=== PATIENT | male | born 1965 | race Caucasian/White ===

== ENCOUNTER 2017-04-15 21:16 | Observation (INO) | payer BC ==
[2017-04-15] VITALS (10 sets, daily range): BP systolic 147–239; BP diastolic 84–113; PULSE 94–120; RESP 16–20; TEMP 99.2; O2SAT 93–98
[~2017-04-15] VITALS: Ht 185.4 cm; Wt 127.0 kg
[~2017-04-15 21:16] MED LIST: GLUCTAB PO; LANTUSP SQ; NAPR500 PO; NOVOLOGP2 SC
[2017-04-15] MEDS ORDERED: IODIXANOL 320 MG/ML 10 ML VIAL (for Rad CT) IVCONTRAST ONE (21:39)
[2017-04-15 21:42] LABS: AUTOMATED NEUTROPHIL # 2.8 TH/MM3 (1.8-7.7); BASOPHIL # 0.1 TH/MM3 (0-0.2); BASOPHIL % 1.1 % (0.0-2.0); EOSINOPHIL # 0.1 TH/MM3 (0-0.4); EOSINOPHIL % 2.4 % (0.0-4.0); HEMATOCRIT 39.6 % (39.0-51.0); HEMO FLAGS DIFF FINAL; LYMPH % 37.3 % (9.0-44.0); LYMPHOCYTE # 2.1 TH/MM3 (1.0-4.8); MEAN CELL VOLUME 88.1 FL (80.0-100.0); MEAN CORPUSCULAR HEMOGLOBIN 30.7 PG (27.0-34.0); MEAN CORPUSCULAR HGB CONC 34.8 % (32.0-36.0); MONO % 9.3 % (0.0-8.0); NEUT % 49.9 % (16.0-70.0); PLATELET COUNT 200 TH/MM3 (150-450); RED BLOOD COUNT 4.49 MIL/MM3 (4.50-5.90); RED CELL DISTRIBUTION WIDTH 12.5 % (11.6-17.2); WHITE BLOOD COUNT 5.6 TH/MM3 (4.0-11.0)
[2017-04-15] MEDS ORDERED: niCARdipine INJ 25 MG in SODIUM CHLOR 0.9% 250 ML INJ 240 ML IV PRN (21:45)
[2017-04-15 21:50] LABS: CHLORIDE 103 MEQ/L (98-107); POTASSIUM 3.8 MEQ/L (3.5-5.1); SODIUM (NA) 136 MEQ/L (136-145)
[2017-04-15 21:53] LABS: ANION GAP 10 MEQ/L (5-15); BICARBONATE 22.8 MEQ/L (21.0-32.0)
[2017-04-15 21:54] LABS: BLOOD UREA NITROGEN 17 MG/DL (7-18)
[2017-04-15 21:57] LABS: GLOMERULAR FILTRATION RATE 94 ML/MIN (>89)
[2017-04-15] MEDS: SODIUM CHLOR 0.9% 1000 ML INJ 1,000 ML IV SCH (21:57)
--- NOTE | 2017-04-15 21:58 | RADRPT ---
EXAM DATE/TIME: 04/15/2017 21:37 [facility] COMPARISON: No previous studies available for comparison. INDICATIONS : Right sided facial droop RADIATION DOSE: 61.90 CTDIvol (mGy) This report was called by Dr. Chen to Dr. Layne at 9: 55 PM on 04/15/17. MEDICAL HISTORY : Diabetes mellitus type 2. SURGICAL HISTORY : None. ENCOUNTER: Initial ACUITY: 1 day PAIN SCALE: 0/10 LOCATION: Right cranial TECHNIQUE: Multiple contiguous axial images were obtained of the head. Using automated exposure control and adj ustment of the mA and/or kV according to patient size, radiation dose was kept as low as reasonably a chievable to obtain optimal diagnostic quality images. DICOM format image data is available electro nically for review and comparison. FINDINGS: CEREBRUM: The ventricles are normal for age. No evidence of midline shift, mass lesion, hemorrhage or acute in farction. No extra-axial fluid collections are seen. POSTERIOR FOSSA: The cerebellum and brainstem are intact. The 4th ventricle is midline. The cerebellopontine angle i s unremarkable. EXTRACRANIAL: The visualized portion of the orbits is intact. SKULL: The calvaria is intact. No evidence of skull fracture. CONCLUSION: No acute disease. Robert Chen MD on April 15, 2017 at 21:54 Board Certified Radiologist. This report was verified electronically.
[2017-04-15 22:00] LABS: CREATINE KINASE 153 U/L (39-308)
[2017-04-15 22:01] LABS: PROTHROMBIN TIME - PATIENT 9.9 SEC (9.8-11.6)
--- NOTE | 2017-04-15 22:09 | PD ---
HPI Chief Complaint: Neuro Symptoms/ Deficits Time Seen by Provider: 21:34 Travel History International Travel<30 days: No Contact w/Intl Traveler<30days: No Traveled to known affect area: No History of Present Illness HPI 51-year-old male presents to the emergency department by private transportation the care of his for evaluation of new onset right facial droop. Patient states this is markedly improved since noticing a first-time at 8:55 PM this evening. According to patient the last time he is ultimately urgency his face was around 3 PM until the episode at 8:55 PM. Patient states he ate dinner with his around 6 PM and at that time his did not notice any facial changes and did not make any comment and then for the rest of the evening he was watching TV with her however they were sitting [id number] so she was not looking at him until he brought the right facial droop to her attention at 8:55 PM the at the bedside states that the facial change on the right side of the face has markedly improved and had started to improve while he was on his way here to the hospital. She did not notice any other findings. 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 Patient has had no change in his speech. No headache. No confusion. No visual disturbance. No upper or lower extremity numbness tingling or weakness. Patient has noted for the past 3 hours feeling as though his blood sugar is low and feeling weak like he does when he has hypoglycemic episodes but does not identify any focal weakness and no ataxia. Patient's blood sugar at home was 170. Patient states he noticed his diabetic hypoglycemic symptoms around 6 PM. Patient's blood sugar here is 238. Patient denies prior history of TIA or CVA. Patient takes no blood thinning agents including aspirin because he's had bleeding into his left IV for associated with aspirin use. 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 [facility] Past Medical History Narrative Medical Hypertension tachycardia diabetes Left eye blindness Social History Tobacco Use: No Allergies-Medications (Allergen,Severity, Reaction): Coded Allergies: No Known Allergies (Unverified , 04/15/17) Reported Meds & Prescriptions Reported Meds & Active Scripts Active Reported Trulicity Inj (Dulaglutide Inj) 1.5 Mg/0.5 Ml Pen 1.5 Mg SQ Q7D Levemir Inj (Insulin Detemir) 1,000 unit/ 10 ML Vial 45 Units SQ BID Do not mix with any other Insulin. Novolin R Inj (Insulin Human Regular) 1,000 Unit/10 Ml Vial 20 Units SQ Novolin R Inj (Insulin Human Regular) 1,000 Unit/10 Ml Vial 0 SQ DIRECTED Sliding Scale As Directed. Metformin (Metformin HCl) 1,000 Mg Tab 1,000 Mg PO BIDPC Atenolol 50 Mg Tab 50 Mg PO BID Losartan (Losartan Potassium) 50 Mg Tab 50 Mg PO DAILY Narrative Medication Blood pressure medication and diabetic medication Review of Systems Except as stated in HPI: all other systems reviewed are Neg General / Constitutional: No: Fever, Chills Eyes: Positive: Blindness (left eye x 30 years after injury from nail to the left eye), No: Diploplia, Blurred Vision, Visual changes HENT: No: Headaches, Lightheadedness, Neck Pain Cardiovascular: No: Chest Pain or Discomfort, Palpitations, Diaphoresis Respiratory: No: Shortness of Breath Gastrointestinal: No: Nausea, Vomiting Genitourinary: No: Flank Pain Musculoskeletal: No: Pain Skin: No Rash Neurologic: Positive: Focal Abnormalities (right facial droop --resolving prior to arrival), No: Weakness, Dizziness, Syncope, Coordination Problem, Ataxia, Headache, Change in Mentation, Slurred Speech, Paresthesia, Seizures, Sensory Disturbance Endocrine: No: Heat Intolerance, Cold Intolerance Hematologic/Lymphatic: No: Easy Bruising Physical Exam Narrative GENERAL: Well-developed well-nourished male appears mildly anxious in no respiratory distress; GCS 15, normal speech SKIN: Warm and dry. HEAD: Atraumatic. Normocephalic. EYES: Right pupil equal and round reactive to light; left pupil dilated and nonreactive with residual decreased rom secondary to chronic trauma. No scleral icterus. No injection or drainage. ENT: No nasal bleeding or discharge. Mucous membranes pink and moist. Airway is patent. NECK: Trachea midline. No JVD. CARDIOVASCULAR: Regular rate and rhythm. RESPIRATORY: No accessory muscle use. Clear to auscultation. Breath sounds equal bilaterally. GASTROINTESTINAL: Abdomen soft, non-tender, nondistended. Hepatic and splenic margins not palpable. MUSCULOSKELETAL: Extremities without clubbing, cyanosis, or edema. No obvious deformities. NEUROLOGICAL: Awake and alert. GCS 15. No obvious cranial nerve deficits; except for previous chronic left eye injury; no facial droop is noted at this time; normal nasolabial fold bilaterally. Motor grossly within normal limits. Five out of 5 muscle strength in the arms and legs. No limb ataxia, bilateral upper extremities or bilateral lower extremities. No pronator drift. Normal speech. PSYCHIATRIC: Appropriate mood and affect; insight and judgment normal. Data Data Last Documented VS Vital Signs Date Time Temp Pulse Resp B/P (MAP) Pulse Ox O2 Delivery O2 Flow Rate FiO2 04/15/17 22:31 112 16 169/91 (117) 98 Nasal Cannula 2.00 04/15/17 22:16 99.2 04/15/17 21:[address] Brain W/O Iv Contrast(Rout) (04/15/17 ) Cath For Specimen (04/15/17 21:36) Neuro Checks Q2HX12,Q4H (04/15/17 21:36) Nursing Bedside Swallow Assess .ONCE (04/15/17 21:36) Activity Bed Rest (04/15/17 21:36) Prothrombin Time / Inr (Pt) (04/15/17 21:36) Act Partial Throm Time (Ptt) (04/15/17 21:36) Complete Blood Count With Diff (04/15/17 21:36) Basic Metabolic Panel (Bmp) (04/15/17 21:36) Fibrinogen (04/15/17 21:36) Creatine Kinase (Cpk) (04/15/17 21:36) Troponin I (04/15/17 21:36) Ua Includes Microscopic (04/15/17 21:36) Drug Screen, Random Urine (04/15/17 21:36) Type And Screen (04/15/17 21:36) Cta Brain W Iv Contrast W 3d (04/15/17 21:36) Cta Neck W Iv Contrast W 3d (04/15/17 21:36) Electrocardiogram (04/15/17 ) Consult Neurology (04/15/17 21:36) Blood Glucose (04/15/17 21:36) Ecg Monitoring (04/15/17 21:36) Iv Access Insert/Monitor (04/15/17 21:36) NPO (04/15/17 21:36) Oximetry (04/15/17 21:36) Oxygen Administration (04/15/17 21:36) Resp Oxygen Juan M C Titrat 1-4 L (04/15/17 21:36) Sodium Chlor 0.9% 1000 Ml Inj (Ns 1000 M (04/15/17 21:45) Nicardipine Inj (Cardene Inj) (04/15/17 21:45) Place In Observation (04/15/17 ) Vital Signs (Adult) Q2HX12,Q4H (04/15/17 22:32) Nih Stroke Scale - Nihss .Daily (04/15/17 22:32) Neuro Checks Q2HX12,Q4H (04/15/17 22:32) Notify Dr: Other (04/15/17 22:32) Remove Urinary Catheter .ONCE (04/15/17 22:32) Case Management Consult (04/15/17 ) Activity Oob Ad Ankita (04/15/17 22:32) Nursing Bedside Swallow Assess .ONCE (04/15/17 22:32) Scd Bilateral/Knee High MARLENE.QSHIFT (04/15/17 22:32) Hemoglobin (Hgb) A1c (04/15/17 22:32) Lipid Profile (04/16/17 06:00) Echo 2d Comp With Doppler (04/15/17 ) ^ Hold Medication (04/15/17 22:32) Sodium Chloride 0.9% Flush (Ns Flush) (04/16/17 09:00) Sodium Chloride 0.9% Flush (Ns Flush) (04/15/17 22:45) Bedside Glucose MARLENE.CSUGAR (04/15/17 22:32) ^ Discontinue Insulin Orders (04/15/17 22:32) Insulin Aspart Supplemtl Scale (Novolog (04/16/17 08:00) Dextrose 50% In Darshan (Vial) Inj (D50w (Vi (04/15/17 22:45) Glucagon Inj (Glucagon Inj) (04/15/17 22:45) Potato Loader / Telemetry MARLENE.Q8H (04/15/17 22:32) Consult Stroke Navigator (04/15/17 ) Admit Order (Ed Use Only) (04/15/17 ) Potato Loader / Telemetry MARLENE.Q8H (04/15/17 22:33) Activity Bed Rest (04/15/17 22:33) Notify Dr: Other (04/15/17 22:33) Labs Laboratory Tests Test 04/15/17 21:36 04/15/17 22:20 White Blood Count 5.6 TH/MM3 Red Blood Count 4.49 MIL/MM3 Hemoglobin 13.8 GM/DL Hematocrit 39.6 % Mean Corpuscular Volume 88.1 FL Mean Corpuscular Hemoglobin 30.7 PG Mean Corpuscular Hemoglobin Concent 34.8 % Red Cell Distribution Width 12.5 % Platelet Count 200 TH/MM3 Mean Platelet Volume 7.3 FL Neutrophils (%) (Auto) 49.9 % Lymphocytes (%) (Auto) 37.3 % Monocytes (%) (Auto) 9.3 % Eosinophils (%) (Auto) 2.4 % Basophils (%) (Auto) 1.1 % Neutrophils # (Auto) 2.8 TH/MM3 Lymphocytes # (Auto) 2.1 TH/MM3 Monocytes # (Auto) 0.5 TH/MM3 Eosinophils # (Auto) 0.1 TH/MM3 Basophils # (Auto) 0.1 TH/MM3 CBC Comment DIFF FINAL Differential Comment Prothrombin Time 9.9 SEC Prothromb Time International Ratio 1.0 RATIO Activated Partial Thromboplast Time 20.0 SEC Fibrinogen 339 mg/dL Blood Urea Nitrogen 17 MG/DL Creatinine 0.86 MG/DL Random Glucose 223 MG/DL Calcium Level 8.8 MG/DL Sodium Level 136 MEQ/L Potassium Level 3.8 MEQ/L Chloride Level 103 MEQ/L Carbon Dioxide Level 22.8 MEQ/L Anion Gap 10 MEQ/L Estimat Glomerular Filtration Rate 94 ML/MIN Total Creatine Kinase 153 U/L Troponin I LESS THAN 0.02 NG/ML Urine Color YELLOW Urine Turbidity CLEAR Urine pH 6.0 Urine Specific [place] GREATER THAN 1.035 Urine Protein NEG mg/dL Urine Glucose (UA) 100 mg/dL Urine Ketones NEG mg/dL Urine Occult Blood NEG Urine Nitrite NEG Urine Bilirubin NEG Urine Leukocyte Esterase NEG Urine RBC 0-2 /hpf Urine WBC 0-2 /hpf Urine Squamous Epithelial Cells 0-5 /hpf Urine Bacteria NONE /hpf Microscopic Urinalysis Comment Urine Opiates Screen NEG Urine Barbiturates Screen NEG Urine Amphetamines Screen NEG Urine Benzodiazepines Screen NEG Urine Cocaine Screen NEG Urine Cannabinoids Screen NEG MDM Medical Decision Making Medical Screen Exam Complete: Yes Emergency Medical Condition: Yes Medical Record Reviewed: Yes Interpretation(s) CT brain w/o: negative per Dr Chen at 9:56 PM EKG sinus tachycardia rate 1:[address] elevation or injury pattern or ectopy noted; some artifact is present at baseline CBC & BMP Diagram 04/15/17 21:36 Calcium Level 8.8 Last Impressions Head CTA 04/15/176 Signed Impressions: Service Date/Time: April 21:37 - CONCLUSION: Normal examination. Tio Gates MD Head CT 04/15/17 0000 Signed Impressions: Service Date/Time: April 21:37 - CONCLUSION: No acute disease. Robert Chen MD CTA brain: INDINGS: There is excellent visualization of the major intracranial arteries out to the second-order branch vessels. There is no evidence for aneurysm, vessel truncation or stenosis, and no evidence for vascular malformation. CONCLUSION: Normal examination. Tio Gates MD on April 15, 2017 at 23:18 Board Certified Radiologist. This report was verified electronically. Differential Diagnosis stroke ischemic v hemorrhagic, tia, hypertensive crisis Narrative Course placed supine on high voltage electrician with continuous pulse oximeter; BP: 239/98 at the bedside; reports she thinks possibly "slight right lower lip corner drooping" Stroke alert called at 9:31 pm -- at the bedside, nihss:[address] Saavedra 9:[address] at 9:52 PM -- BP: 184/88 --- will hold off on administration of nicardipine 9:[address] brain per Dr Chen; patient reports no complaints aware of CT results and spouse at bedside case discussed with Dr Gil Physician Communication Physician Communication discussed with Dr Saavedra at 9:35 --if CT brain negative --aspirin x 1 dose due to BP decrease to 180 mmHg CTA head and neck tonight MR in AM with AM neurology consult; CT resulted by radiologist @ 9:56PM per Dr Chen "negative CT brain"; discussed with Dr Gil --intermediate level bed --for possible iv bp control Diagnosis Primary Impression: TIA (transient ischemic attack) Qualified Codes: G45.9 - Transient cerebral ischemic attack, unspecified Additional Impression: Accelerated hypertension Admitting Information Admitting Physician Requests: Admit Tamara Layne MD Apr 15, 2017 22:09
[2017-04-15] MEDS ORDERED: NOVORP2 SQ ×2 (22:12)
[2017-04-15] MEDS ORDERED: LOSA50TA PO (22:12)
[2017-04-15] MEDS ORDERED: DULA0.5I SQ (22:12)
[2017-04-15] MEDS ORDERED: METF1000 PO (22:12)
[2017-04-15] MEDS ORDERED: LEVEMIR SQ (22:12)
[2017-04-15] MEDS ORDERED: ATEN50TA PO (22:12)
[2017-04-15 22:27] LABS: BLOOD, URINE NEG (NEG); GLUCOSE,URINE 100 mg/dL (NEG); KETONE, URINE NEG (NEG); NITRITE,URINE NEG (NEG)
--- NOTE | 2017-04-15 22:29 | EKG ---
Date Performed: 04/15/2017 Time Performed: 22:06:48 PTAGE: 51 years EKG: SINUS TACHYCARDIA NONSPECIFIC T-WAVE ABNORMALITY ABNORMAL RHYTHM ECG NO PREVIOUS TRACING DOCTOR: Emil Hutchins Interpretating Date/Time 04/15/2017 22:28:45
[2017-04-15] MEDS ORDERED: IOHEXOL 350 MG/ML 10 ML VIAL (for RAD DIAG) IVCONTRAST ONE (22:35)
[2017-04-15 22:37] LABS: RBC, URINE 0-2 /hpf (0-3); SQUAMOUS EPITHELIAL CELL URINE 0-5 /hpf (0-5); URINE COLOR YELLOW (YELLW/STRAW); WBC, URINE 0-2 /hpf (0-5)
[2017-04-15] MEDS ORDERED: LABETALOL HCL 100 MG/20 ML VIAL IV PUSH PRN (22:45)
[2017-04-15] MEDS ORDERED: GLUCAGON 1 MG/ML VIAL OTHER PRN (22:45)
[2017-04-15] MEDS ORDERED: SODIUM CHLORIDE 0.9% FLUSH 10 ML FLUSH IV FLUSH PRN (22:45)
[2017-04-15] MEDS ORDERED: DEXTROSE 50% IN WATER 50 ML VIAL(D50) IV PUSH PRN (22:45)
[2017-04-15] MEDS ORDERED: ASPIRIN 325 MG TAB PO ONE (22:45)
--- NOTE | 2017-04-15 23:21 | RADRPT ---
EXAM DATE/TIME: 04/15/2017 21:37 [facility] COMPARISON: CT BRAIN W/O CONTRAST, April 15, 2017, 21:37. CTA CAROTID ARTERIES W 3D RECON, April 15, 2017, 21:37. INDICATIONS : Right sided facial droop IV CONTRAST: 50 cc Visipaque (iodixanol) IV RADIATION DOSE: 43.16 CTDIvol (mGy) ; Combined studies MEDICAL HISTORY : Diabetes mellitus type 2. SURGICAL HISTORY : None. ENCOUNTER: Initial ACUITY: 1 day PAIN SCALE: 0/10 LOCATION: Right facial TECHNIQUE: Volumetric scanning was performed using a multi-row detector CT scanner. The data was post processed with a variety of visualization algorithms including full volume maximum intensity projection, multi -planar sliding thin slab reformation, curved planar reformation, and surface rendering techniques. Using automated exposure control and adjustment of the mA and/or kV according to patient size, radiat ion dose was kept as low as reasonably achievable to obtain optimal diagnostic quality images. DICO M format image data is available electronically for review and comparison. FINDINGS: There is excellent visualization of the major intracranial arteries out to the second-order branch ve ssels. There is no evidence for aneurysm, vessel truncation or stenosis, and no evidence for vascula r malformation. CONCLUSION: Normal examination. Tio Gates MD on April 15, 2017 at 23:18 Board Certified Radiologist. This report was verified electronically.
--- NOTE | 2017-04-15 23:42 | RADRPT ---
EXAM DATE/TIME: 04/15/2017 21:37 [facility] COMPARISON: CTA BRAIN W 3D RECON, April 15, 2017, 21:37. CT BRAIN W/O CONTRAST, April 15, 2017, 21:37. INDICATIONS : Right sided facial droop. IV CONTRAST: 50 cc Visipaque (iodixanol) IV RADIATION DOSE: 43.16 CTDIvol (mGy) ; Combined studies MEDICAL HISTORY : Diabetes mellitus type 2. SURGICAL HISTORY : None. ENCOUNTER: Initial ACUITY: 1 day PAIN SCALE: 0/10 LOCATION: Right facial Elevated flow velocities and ICA/CCA ratios have been found to correlate with increased degrees of vessel stenosis, calculated as percentage of diameter relative to a normal segment of distal ICA/CCA. TECHNIQUE: Volumetric scanning was performed using a multirow detector CT scanner. The data was post processed with a variety of visualization algorithms including full-volume maximum intensity projection, multip lanar sliding thin-slab reformation, curved-planar reformation, and surface-rendering techniques. Us ing automated exposure control and adjustment of the mA and/or kV according to patient size, radiatio n dose was kept as low as reasonably achievable to obtain optimal diagnostic quality images. DICOM f ormat image data is available electronically for review and comparison. FINDINGS: AORTIC ARCH: There is a three-vessel origin of the great vessels from the aorta. No evidence of ostial narrowing. RIGHT CAROTID: There is mild focal atherosclerotic plaque deposition at the carotid bulb without hemodynamically sig nificant stenosis. LEFT CAROTID: The common carotid artery is intact. The carotid bulb has a normal configuration without ulceration or narrowing. The internal carotid artery lumen is smooth without stenosis. The external carotid ar ethan is intact. VERTEBRALS: The vertebral arteries have a symmetric diameter. No stenotic lesions are seen. CONCLUSION: 1. Mild atherosclerosis without evidence for hemodynamically significant stenosis of either carotid a rtery. Tio Gates MD on April 15, 2017 at 23:39 Board Certified Radiologist. This report was verified electronically.
[2017-04-16] VITALS (26 sets, daily range): BP systolic 115–156; BP diastolic 62–89; PULSE 80–100; RESP 0–37; TEMP 97.2–98; O2SAT 96–98
[2017-04-16] MEDS ORDERED: INSULIN ASPART SUPPLEMENTAL SCALE SQ SCH (08:00)
[2017-04-16] MEDS ORDERED: INFLUENZA VIRUS VACCINE (QUADRIVALENT) 0.5 ML SYR IM ONE (09:00)
[2017-04-16] MEDS ORDERED: SODIUM CHLORIDE 0.9% FLUSH 10 ML FLUSH IV FLUSH SCH (09:00)
[2017-04-16] MEDS ORDERED: ATORVASTATIN 40 MG TAB PO ONE (09:00)
[2017-04-16] MEDS ORDERED: LORazepam 0.5 MG TAB PO PRN (09:30)
[2017-04-16 09:43] LABS: HDL CHOLESTEROL 40.9 MG/DL (40.0-60.0); LDL CHOLESTEROL 87 MG/DL (0-99)
--- NOTE | 2017-04-16 10:06 | HHI.HP ---
[facility] Primary [facility] Physician Rosalba Cheng MD Admission Diagnosis stroke alert/ TIA; accelerated HTN Diagnoses: Chief Complaint: facial droop Travel History International Travel<30 Days: No Contact w/Intl Traveler <30 Da: No Traveled to Known Affected Are: No History of Present Illness 51-year-old white male being for strokelike symptoms. Patient was in his usual state of health until yesterday evening sometime after 8:00 when he noticed a facial droop when looking in the mirror when he was going to shave. He informed his and then decided to come to the emergency room. He denies any new acute visual disturbances, nausea, vomiting, headache. He does report just a little lightheadedness that self resolved. He said he checked his sugars at home and they were in the 170s to 180s during the time of the incident. By the time they arrived to the hospital the patient's droop had essentially resolved based on the medical staff assessment. His blood pressure was initially elevated but spontaneously improve through the night since being admitted to the floor. Patient denies any prior history of TIAs or strokes. He says his A1c was over 7 the last time he checked it and that his morning sugars run 170+. He says he does not take a baby aspirin daily, does take a angiotensin receptor gage. Review of Systems Except as stated in HPI: all other systems reviewed are Neg Past Family Social History Past Medical History Diabetes Left eye vision impairment Past Surgical History Left eye surgery, left shoulder surgery, left elbow surgery Allergies: Coded Allergies: No Known Allergies (Unverified , 04/15/17) Family History CAD Social History PPD up to 7 yrs ago, smoking since teens, very light occasional ETOH use, no illicit drug use Physical Exam Vital Signs Vital Signs Date Time Temp Pulse Resp B/P (MAP) Pulse Ox O2 Delivery O2 Flow Rate FiO2 04/16/17 09:45 88 21 04/16/17 09:30 90 37 04/16/17 09:15 96 23 04/16/17 09:03 94 23 139/71 (93) 04/16/17 09:00 94 18 156/77 (103) 04/16/17 08:00 98.0 90 20 143/88 (106) 04/16/17 07:12 88 04/16/17 07:00 87 04/16/17 06:57 97.2 82 16 138/89 (105) 97 04/16/17 06:00 80 16 128/85 (99) 04/16/17 05:00 86 11 120/72 (88) 97 04/16/17 04:00 86 8 133/79 (97) 97 04/16/17 03:00 86 10 138/71 (93) 97 04/16/17 02:00 80 10 115/62 (79) 96 04/16/17 01:27 84 16 139/82 (101) 04/16/17 00:47 97 21 04/16/17 00:00 98 04/15/17 23:59 99.2 94 18 147/84 (105) 98 04/15/17 23:25 04/15/17 23:00 98 04/15/17 22:58 113 19 181/90 (120) 98 Nasal Cannula 2.00 04/15/17 22:31 112 16 169/91 (117) 98 Nasal Cannula 2.00 04/15/17 22:16 99.2 115 16 169/109 (129) 98 04/15/17 22:02 Room Air 04/15/17 21:59 110 20 213/91 (131) 97 04/15/17 21:55 114 20 184/88 (120) 98 04/15/17 21:30 93 21 04/15/17 21:30 98 Nasal Cannula 2.00 04/15/17 21:30 93 21 04/15/17 21:30 98 04/15/17 21:29 116 20 239/98 (145) 98 04/15/17 21:20 120 18 228/113 (151) 98 Physical Exam VS: afebrile GENERAL: Lying in bed, awake, middle-aged white male SKIN: Warm and dry. EYES: Pupils round and reactive on right, nonreactive and irregular, fixed on left. No scleral icterus. No injection or drainage. ENT: No nasal bleeding or discharge. Mucous membranes pink and moist. CARDIOVASCULAR: Regular rate and rhythm. no murmurs RESPIRATORY: No accessory muscle use. Clear to auscultation. Breath sounds equal bilaterally. GASTROINTESTINAL: Abdomen soft, non-tender, nondistended. Extremities: No clubbing, cyanosis, or edema. No obvious deformities. MUSCULOSKELETAL: Extremities without clubbing, cyanosis, or edema. No obvious deformities. grossly intact ROM with 5/5 strength in upper and lower extremities proximally NEUROLOGICAL: Awake and alert. No obvious cranial nerve deficits. No facial droop nor slurred speech noted. Patellar reflex +2 on right, none on left. Tongue is midline. Intact sensation to finger touch BL on upper and lower extremities and face. Intact hearing to finger rub bilaterally. Negative Babinski bilaterally PSYCHIATRIC: Appropriate mood and affect; insight and judgment normal. Laboratory Laboratory Tests Test 04/15/17 21:36 04/15/17 22:20 04/16/17 04:20 White Blood Count 5.6 Red Blood Count 4.49 Hemoglobin 13.8 Hematocrit 39.6 Mean Corpuscular Volume 88.1 Mean Corpuscular Hemoglobin 30.7 Mean Corpuscular Hemoglobin Concent 34.8 Red Cell Distribution Width 12.5 Platelet Count 200 Mean Platelet Volume 7.3 Neutrophils (%) (Auto) 49.9 Lymphocytes (%) (Auto) 37.3 Monocytes (%) (Auto) 9.3 Eosinophils (%) (Auto) 2.4 Basophils (%) (Auto) 1.1 Neutrophils # (Auto) 2.8 Lymphocytes # (Auto) 2.1 Monocytes # (Auto) 0.5 Eosinophils # (Auto) 0.1 Basophils # (Auto) 0.1 CBC Comment DIFF FINAL Differential Comment Prothrombin Time 9.9 Prothromb Time International Ratio 1.0 Activated Partial Thromboplast Time 20.0 Fibrinogen 339 Blood Urea Nitrogen 17 Creatinine 0.86 Random Glucose 223 Calcium Level 8.8 Sodium Level 136 Potassium Level 3.8 Chloride Level 103 Carbon Dioxide Level 22.8 Anion Gap 10 Estimat Glomerular Filtration Rate 94 Total Creatine Kinase 153 Troponin I LESS THAN 0.02 Urine Color YELLOW Urine Turbidity CLEAR Urine pH 6.0 Urine Specific [place] GREATER THAN 1.035 Urine Protein NEG Urine Glucose (UA) 100 Urine Ketones NEG Urine Occult Blood NEG Urine Nitrite NEG Urine Bilirubin NEG Urine Leukocyte Esterase NEG Urine RBC 0-2 Urine WBC 0-2 Urine Squamous Epithelial Cells 0-5 Urine Bacteria NONE Microscopic Urinalysis Comment Urine Opiates Screen NEG Urine Barbiturates Screen NEG Urine Amphetamines Screen NEG Urine Benzodiazepines Screen NEG Urine Cocaine Screen NEG Urine Cannabinoids Screen NEG Triglycerides Level 162 Cholesterol Level 160 LDL Cholesterol 87 HDL Cholesterol 40.9 Cholesterol/HDL Ratio 3.91 Result Diagram: 04/15/17213504/[id number]/172135 Imaging Last Impressions Neck CTA 04/15/172135 Signed Impressions: Service Date/Time: April 21:37 - CONCLUSION: 1. Mild atherosclerosis without evidence for hemodynamically significant stenosis of either carotid artery. Tio Gates MD Head CTA 04/15/172135 Signed Impressions: Service Date/Time: April 21:37 - CONCLUSION: Normal examination. Tio Gates MD Head CT 04/15/17 0000 Signed Impressions: Service Date/Time: April 21:37 - CONCLUSION: No acute disease. MD Irina Ma VTE Risk Assessment Caprini VTE Risk Assessment: Mod/High Risk (score >= 2) Caprini Risk Assessment Model Point Value = 1 Point Value = 2 Point Value = 3 Point Value = 5 Age 41-60 Minor surgery BMI > 25 kg/m2 Swollen legs Varicose veins or History of unexplained or recurrent spontaneous Oral contraceptives or hormone replacement Sepsis (< 1 month) Serious lung disease, including pneumonia (< 1 month) Abnormal pulmonary function Acute myocardial infarction Congestive heart failure (< 1 month) History of inflammatory bowel disease Medical patient at bed rest Age 61-74 Arthroscopic surgery Major open surgery (> 45 min) Laparoscopic surgery (> 45 min) Malignancy Confined to bed (> 72 hours) Immobilizing plaster cast Central venous access Age >= 75 History of VTE Family history of VTE Factor V Leiden Prothrombin [id number] Lupus anticoagulant Anticardiolipin antibodies Elevated serum homocysteine Heparin-induced thrombocytopenia Other congenital or acquired thrombophilia Stroke (< 1 month) Elective arthroplasty Hip, pelvis, or leg fracture Acute spinal cord injury (< 1 month) Prophylaxis Regimen Total Risk Factor Score Risk Level Prophylaxis Regimen 0-1 Low Early ambulation 2 Moderate Order ONE of the following: *Sequential Compression Device (SCD) *Heparin 5000 units SQ BID 3-4 Higher Order ONE of the following medications: *Heparin 5000 units SQ TID *Enoxaparin/Lovenox 40 mg SQ daily (WT < 150 kg, CrCl > 30 mL/min) *Enoxaparin/Lovenox 30 mg SQ daily (WT < 150 kg, CrCl > 10-29 mL/min) *Enoxaparin/Lovenox 30 mg SQ BID (WT < 150 kg, CrCl > 30 mL/min) AND/OR *Sequential Compression Device (SCD) 5 or more Highest Order ONE of the following medications: *Heparin 5000 units SQ TID (Preferred with Epidurals) *Enoxaparin/Lovenox 40 mg SQ daily (WT < 150 kg, CrCl > 30 mL/min) *Enoxaparin/Lovenox 30 mg SQ daily (WT < 150 kg, CrCl > 10-29 mL/min) *Enoxaparin/Lovenox 30 mg SQ BID (WT < 150 kg, CrCl > 30 mL/min) AND *Sequential Compression Device (SCD) Assessment and Plan Assessment and Plan 51 y/o WM being admitted for strokelike symptoms Strokelike symptoms - Clinically resolved - Head CTA and neck CTA are unremarkable - Echocardiogram has been performed, pending report - Awaiting head MRI which began in the next hour - PT/OT/ST evaluations - Continue aspirin, starting high intensity statin - Patient was extensively counseled on the importance of better sugar control to get A1c better in 4 morning sugars to be less than 130. - Permissive hypertension until later this afternoon. Resume home atenolol and losartan tonight or post discharge - fall precautions DM uncontrolled - Given that the patient was 45 units of Levemir twice a day at home, I will modify him to medium dose sliding scale and hold off his home metformin since he has also received contrast Possible discharge later this evening if stable reports and evals. SCDs Addendum: MRI neg for any signs of acute stroke. Pt/s echo unremarkable except for grade I diastolic dysfunction. To continue atenolol and losartan upon d/c. Pt counseled on importance of taking statin and ideal blood glucose control. Gasper Casillas MD Apr 16, 2017 10:06
[2017-04-16 11:30] LABS: BICARBONATE 23.7 MEQ/L (21.0-32.0); POTASSIUM 3.7 MEQ/L (3.5-5.1)
[2017-04-16] MEDS: INSULIN NovoLIN REGULAR SUPPLEMENTAL SCALE SQ SCH ×2 (12:00→17:00)
[2017-04-16] MEDS: SODIUM CHLOR 0.9% 1000 ML INJ 1,000 ML IV SCH (12:03)
[2017-04-16 13:21] LABS: HEMOGLOBIN A1a 1.1 %; HEMOGLOBIN A1b 1.9 %; HEMOGLOBIN Ao 82.7 %; HEMOGLOBIN LA1C 2.3 %; HEMOGLOBIN P3 3.9 %
--- NOTE | 2017-04-16 13:54 | ECHRPT ---
Indication: CVA/TIA CONCLUSIONS The left ventricular systolic function is hyperdynamic with an estimated ejection fraction in the ra nge of 65- 70%. Mild concentric left ventricular hypertrophy. Doppler parameters are consistent with impaired left ventricular relaxtion (grade 1 diastolic dysfun ction). BP: 138 / 89 HR: Rhythm: Sinus MEASUREMENTS (Male / Female) Normal Values Technical Quality:Fair 2D ECHO LV Diastolic Diameter PLAX 4.8 cm 4.2 - 5.9 / 3.9 - 5.3 cm LV Systolic Diameter PLAX 3.2 cm IVS Diastolic Thickness 1.1 cm 0.6 - 1.0 / 0.6 - 0.9 cm LVPW Diastolic Thickness 1.1 cm 0.6 - 1.0 / 0.6 - 0.9 cm LV Relative Wall Thickness 0.5 RV Internal Dim ED PLAX 2.6 cm LVOT Diameter 2.0 cm Aortic Root Diameter 2.9 cm LA Systolic Diameter LX 3.7 cm 3.0 - 4.0 / 2.7 - 3.8 cm M-MODE AV Cusp Separation MM 1.8 cm DOPPLER AV Peak Velocity 164.0 cm/s AV Peak Gradient 10.8 mmHg AV Mean Gradient 6.0 mmHg AV Velocity Time Integral 28.6 cm LVOT Peak Velocity 127.0 cm/s LVOT Peak Gradient 6.5 mmHg LVOT Velocity Time Integral 22.1 cm AV Area Cont Eq vti 2.4 cm AV Area Cont Eq pk 2.4 cm Mitral E Point Velocity 63.7 cm/s Mitral A Point Velocity 81.9 cm/s Mitral E to A Ratio 0.8 LV E' Lateral Velocity 11.0 cm/s Mitral E to LV E' Lateral Ratio 5.8 LV E' Septal Velocity 9.4 cm/s Mitral E to LV E' Septal Ratio 6.8 PV Peak Velocity 109.0 cm/s PV Peak Gradient 4.8 mmHg FINDINGS LEFT VENTRICLE Normal left ventricular size. Mild concentric left ventricular hypertrophy. The left ventricular systolic function is hyperdynamic with an estimated ejection fraction in the ra nge of 65- 70%. No regional wall motion abnormalities are present. Doppler parameters are consistent with impaired left ventricular relaxtion (grade 1 diastolic dysfun ction). RIGHT VENTRICLE Normal right ventricular size and systolic function. LEFT ATRIUM The left atrial size is normal. RIGHT ATRIUM The right atrial size is normal. ATRIAL SEPTUM Normal atrial septal thickness. AORTA The aortic root and proximal ascending aorta are normal in size on limited imaging. MITRAL VALVE Structurally normal mitral valve. No mitral valve stenosis or regurgitation. AORTIC VALVE Trileaflet aortic valve. No aortic valve stenosis or regurgitation. TRICUSPID VALVE Structurally normal tricuspid valve. No tricuspid valve stenosis or regurgitation. PULMONARY VALVE No pulmonary valve regurgitation or stenosis. VESSELS The inferior vena cava is normal in size. PERICARDIUM No pericardial effusion. Rusty Basurto DO (Electronically Signed) Final Date:16 April 2017 13:52
--- NOTE | 2017-04-16 16:41 | RADRPT ---
EXAM DATE/TIME: 04/16/2017 14:52 [facility] COMPARISON: No previous studies available for comparison. INDICATIONS : Right sided facial droop. MEDICAL HISTORY : Hypertension. Diabetes mellitus type 2. SURGICAL HISTORY : back surgery, lt shoulder, eye surgery ENCOUNTER: Subsequent ACUITY: 2 day PAIN SCORE: 0/10 LOCATION: cranial TECHNIQUE: Multiplanar, multisequence MRI of the brain was performed without contrast. FINDINGS: CEREBRUM: The ventricles are normal for age. No evidence of midline shift, mass lesion, hemorrhage or acute in farction. No extraaxial fluid collections are seen. The pituitary gland and suprasellar cistern are normal in configuration. WHITE MATTER: No significant signal abnormalities are seen in the white matter. POSTERIOR FOSSA: The cerebellum and brainstem are intact. The 4th ventricle is midline. The cerebellopontine angle is unremarkable. The cerebellar tonsils are normal in position. DIFFUSION IMAGING: No focal areas of restricted diffusion are seen. No evidence of acute infarction. EXTRACRANIAL: The visualized portions of the orbits and paranasal sinuses are unremarkable. CONCLUSION: 1. No evidence of acute intracranial pathology. No masses are identified. Prateek Lauren MD on April 16, 2017 at 16:29 Board Certified Radiologist. This report was verified electronically.
--- NOTE | 2017-04-16 16:57 | RADRPT ---
EXAM DATE/TIME: 04/16/2017 14:52 [facility] COMPARISON: CTA BRAIN W 3D RECON, April 15, 2017, 21:37. INDICATIONS : Right sided facial droop. MEDICAL HISTORY : Hypertension. Diabetes mellitus type 2. SURGICAL HISTORY : back surgery, Lt shoulder, eye surgery ENCOUNTER: Subsequent ACUITY: 2 day PAIN SCORE: 0/10 LOCATION: cranial Please note a normal MRA of the brain does not entirely exclude the possibility of a small aneurysm, nor the possibility of distal intracranial vessel disease. TECHNIQUE: 3D time of flight MRA was performed. Source images, multiplanar STS MIP, and 3D volume MIP reconstru ctions were reviewed. FINDINGS: Anterior circulation: The internal carotid arteries demonstrate no abnormality or atherosclerotic change. A1 segments and m ore distal anterior cerebral arteries are symmetric and within normal limits. The middle cerebral art wilmer branches demonstrate symmetric flow related enhancement. No aneurysm or high-grade stenosis is id entified. Posterior circulation: There are patent posterior cerebral arteries bilaterally. The left vertebral artery is dominant. The basilar artery and posterior cerebral arteries demonstrate no significant stenosis or abnormality. No aneurysm is visualized. CONCLUSION: No acute intracranial vascular abnormality is identified. Robinson Hernandez MD on April 16, 2017 at 16:51 Board Certified Radiologist. This report was verified electronically.
--- NOTE | 2017-04-16 17:34 | HHI.DCPOC ---
Discharge Care Plan Diagnosis: (1) TIA (transient ischemic attack) Goals to Promote Your Health * To prevent worsening of your condition and complications * To maintain your health at the optimal level Directions to Meet Your Goals Take your medications as prescribed Follow your dietary instruction Follow activity as directed Keep your appointments as scheduled Take your immunizations and boosters as scheduled If your symptoms worsen call your PCP, if no PCP go to Urgent Care Center or Emergency Room Smoking is Dangerous to Your Health. Avoid second hand smoke Call the 24-hour hour crisis hotline for domestic abuse at Melvin Jimenez Apr 16, 2017 17:34
[2017-04-16] MEDS ORDERED: LIPI20TA PO (17:37)
[2017-04-16] MEDS ORDERED: ASPI81TA23 PO (17:37)
--- NOTE | 2017-04-16 22:30 | MB ---
cc: KRISTINA CARDENAS MD DATE OF CONSULTATION: 04/16/2017. REASON FOR CONSULTATION: Stroke alert HISTORY OF PRESENT ILLNESS: Mr. Landeros is a 51-year-old male who presented to the [facility] with some stroke-like symptoms, thus a stroke alert was called. The patient felt that his right side of the face felt droopy when he was looking in the mirror during his shave. He denies double vision, blurred vision, speech difficulty, weakness of an extremity. He felt lightheadedness a little bit. He thought that his sugar went low; however, it was 170s to 180s. By the time he arrived to the hospital, his symptoms had essentially resolved. His blood pressure was initially elevated at 239/98. The patient denies history of TIA or stroke. His diabetes is not very well controlled. His A1c was over the last time he checked it and this morning his blood sugar was greater than 170. He is aspirin-naive and he denies any spike of his blood pressure recently and he relates this incident to be related to anxiety. During the encounter, the patient was ready to leave the hospital waiting for neurologic clearance given his normal neurologic investigation. His and two daughters were at the bedside. REVIEW OF SYSTEMS: A twelve-point review of systems was negative except as stated in the history of present illness. PAST MEDICAL HISTORY: 1. Diabetes. 2. Left eye vision impairment. PAST SURGICAL HISTORY: 1. Left eye surgery. 2. Left shoulder surgery. 3. Left elbow surgery. ALLERGIES: NO KNOWN ALLERGIES. FAMILY HISTORY: Coronary artery disease. SOCIAL HISTORY: Ex-smoker of one pack per day up to seven years ago. Occasion light ethanol use. No illicit drug use. PHYSICAL EXAMINATION: GENERAL: The patient is awake, alert, pleasant, good historian. Not in acute distress. HEAD, EYES, EARS, NOSE, THROAT: Normocephalic and atraumatic. Left eye surgical pupil. Squint/chronic. CARDIOVASCULAR: Regular rate and rhythm. RESPIRATORY: Clear to auscultation. No wheezes. NEUROLOGICAL EXAMINATION: Awake, alert and oriented to time, person and place. Cranial nerves II through XII are grossly intact other than the left eye chronic visual impairment. Motor, sensory, cerebellar systems are intact. PSYCHIATRIC: Appropriate mood and affect. No hallucinations. Cooperative. LAB TESTS: WBCs 5.6, hemoglobin 13.8, platelets 200,000. INR 1. BUN 17, creatinine 0.86, random glucose 223, calcium 8.8, sodium 136. Urine drug screen is negative. DIAGNOSTIC IMAGING: - Head CT scan without contrast was reported with no acute disease. - Neck CTA with contrast revealed mild atherosclerosis without evidence for hemodynamically significant stenosis of either carotid arteries. - Head CTA with contrast was reported as a normal examination. - Head MRA without contrast revealed no acute intracranial vascular abnormality. - Brain MRI without contrast with no evidence of acute intracranial pathology. No masses are identified. DIAGNOSTIC IMPRESSION: 1. TIA. 2. Hypertensive urgency. 3. Diabetes mellitus. PLAN: 1. Aspirin 81 milligrams daily. 2. Lipitor 20 milligrams daily. 3. Tight control of blood pressure and blood sugar. 4. Neurological exam is nonfocal and neurological investigation without any evidence of an acute intracranial pathology. 5. The patient needs to follow with primary care physician for tight control of blood sugar and blood pressure. 6. I discussed at length with the patient and his family the importance of tight glycemic control and maintenance of normotension and avoid smoking, light exercise and be on antiplatelet therapy. 7. Follow up as an outpatient with neurology when needed. 8. Please call for any questions. The case was discussed with the registered nurse. Thank you for the opportunity to participate in the care of your patient. MD JESUS Fulton/CRHIS /7:19 PM /10:05 PM SHAY
== END 2017-04-16 16:10 | disposition home or self-care (01) ==
LOC: PHED 21:16 → PHEDA 22:34 → MERGE 22:34 → INTOOBSV 22:34 → PHICU 23:35
PROVIDERS: ADMIT Hospitalist; ATTEND Hospitalist
DX: G45.9 Transient cerebral ischemic attack, unspecified (principal); I16.0 Hypertensive urgency; E11.649 Type 2 diabetes mellitus with hypoglycemia without coma; I10 Essential (primary) hypertension; R94.31 Abnormal electrocardiogram [ECG] [EKG]; H54.62 Unqualified visual loss, left eye, normal vision right eye; M62.81 Muscle weakness (generalized); H57.04 Mydriasis; R00.0 Tachycardia, unspecified; Z79.84 Long term (current) use of oral hypoglycemic drugs; Z87.891 Personal history of nicotine dependence
CPT/HCPCS: 70450; 70496; 70498; 70544; 70551; 80048; 80061; 80307; 81001; 82550; 82948; 83036; 84484; 85025; 85384; 85610; 85730; 86850; 86900; 86901; 92610; 93005; 93306; 96360; 97162; 97166; 99285; G0378; G8987; G8988; G8989; J7030; Q9967